=== PATIENT | female | born 1990 | race Caucasian/White ===

== ENCOUNTER 2016-09-13 16:30 | Inpatient (IN) | payer MEDICAID ==
[2016-09-13] VITALS (8 sets, daily range): BP systolic 94–117; RESP 16–20; TEMP 98.4; Ht 162.6 cm; Wt 117.5 kg
[~2016-09-13] VITALS: Ht 162.6 cm; Wt 117.5 kg
[~2016-09-13 16:30] MED LIST: BUPIVACAINE 0.25% PF 10ML EPIDURAL ONE
[2016-09-13] MEDS: LACT RINGERS 1,000 ML IV SCH ×2 (16:45→18:00)
[2016-09-13] MEDS ORDERED: METOCLOPRAMIDE 10 MG/2 ML VIAL IV PUSH PRN (16:55)
[2016-09-13] MEDS ORDERED: ALU/MAG/SIM 30 ML UDC PO PRN (16:55)
[2016-09-13] MEDS ORDERED: CEFAZOLIN 3,000 MG in SODIUM CHLORIDE 0.9% 100 ML IV PRN (16:55)
[2016-09-13] MEDS ORDERED: PROMETHAZINE 25 MG/ML VIAL IV PRN (16:55)
[2016-09-13] MEDS ORDERED: FAMOTIDINE 20 MG INJ IV PRN (16:55)
[2016-09-13] MEDS ORDERED: LIDOCAINE 1% 30 ML PF INFILTRATE ONE (16:55)
[2016-09-13] MEDS ORDERED: LIDOCAINE 1% BUFFERED 1 ML SYR INTRADERM PRN (16:55)
[2016-09-13] MEDS ORDERED: FAMOTIDINE 20 MG TAB PO PRN (16:55)
[2016-09-13] MEDS ORDERED: TERBUTALINE 1 MG/ML VIAL SUBQ PRN (16:55)
[2016-09-13] MEDS ORDERED: ONDANSETRON 4 MG VIAL IV PRN (16:55)
[2016-09-13] MEDS ORDERED: ACETAMINOPHEN 325 MG TAB PO PRN (16:55)
[2016-09-13] MEDS ORDERED: OXYTOCIN 15 UNITS/250 ML NS 250 ML IV SCH (16:55)
[2016-09-13] MEDS ORDERED: FENTANYL 100 MCG/2 ML AMP ONE (17:18)
[2016-09-13] MEDS ORDERED: ROPIV/FENT 0.2%-2MCG/ML 100 ML EPIDURAL ONE (17:18)
[2016-09-13] MEDS ORDERED: LACT RINGERS 500 ML IV PRN (18:50)
[2016-09-13] MEDS ORDERED: ROPIV/FENT 0.2%-2MCG/ML 100 ML EPIDURAL SCH (18:50)
[2016-09-13] MEDS ORDERED: SODIUM CHLORIDE 0.9% 500 ML IV PRN (18:50)
[2016-09-13] MEDS ORDERED: FENTANYL 100 MCG/2 ML AMP EPIDURAL ONE (18:50)
[2016-09-13] MEDS ORDERED: LACT RINGERS 500 ML IV ONE (18:50)
[2016-09-13] MEDS ORDERED: **ONLY ANESTEHSIA MAY ORDER OPIATES WHILE ON EPIDURAL XX SCH (20:00)
[2016-09-13] MEDS: OXYTOCIN 15 UNITS/250 ML NS 250 ML IV SCH ×2 (21:18→21:54)
[2016-09-13] MEDS ORDERED: SALINE FLUSH 10 ML FLUSH PRN (21:30)
[2016-09-13] MEDS ORDERED: MAG HYDROX 30 ML UDC PO PRN (21:30)
[2016-09-13] MEDS ORDERED: DERMOPLAST SPRAY TOPICAL PRN (21:30)
[2016-09-13] MEDS ORDERED: ASTRINGENT MED PADS 40'S TOPICAL PRN (21:30)
[2016-09-13] MEDS ORDERED: MEASLES,MUMPS,RUBELLA VAC SUBQ.VACC ONE (21:30)
[2016-09-13] MEDS ORDERED: MISOPROSTOL 100 MCG TAB ONE (21:37)
[2016-09-13] MEDS ORDERED: MISOPROSTOL 100 MCG TAB PO ONE (21:40)
[2016-09-14] VITALS (9 sets, daily range): BP systolic 89–119; RESP 16–24; TEMP 97.3–98.1
[2016-09-14] MEDS: Ibuprofen 600 MG TAB PO SCH ×5 (00:14→23:21)
[2016-09-14] MEDS: DOCUSATE SOD 100 MG CAP PO SCH (09:19)
[2016-09-14] MEDS ORDERED: MISSING DOSE XX ONE (17:45)
[2016-09-14] MEDS ORDERED: Flu Vaccine Quadrivalent 60 MCG/0.5 ML IM.VACC ONE (17:45)
[2016-09-15 06:04] VITALS: BP_SYST 107; RESP 16; TEMP 97.5
[2016-09-15] MEDS: Ibuprofen 600 MG TAB PO SCH ×2 (06:06→11:40)
[2016-09-15] MEDS: DOCUSATE SOD 100 MG CAP PO SCH (08:55)
[2016-09-15 09:09] VITALS: BP_SYST 107; RESP 16; TEMP 97.5
[2016-09-15 09:19] VITALS: BP_SYST 107; RESP 16; TEMP 97.5
[2016-09-15 09:21] VITALS: BP_SYST 94
[2016-09-15 09:24] VITALS: RESP 16; TEMP 97.3
== END 2016-09-15 12:18 | disposition home or self-care (01) | DRG 775 ==
LOC: LDOP 16:30 → LD 16:47 → OB 09-14 01:50
PROVIDERS: ADMIT Obstetrics & Gynecology Reproductive Endocrinology; ATTEND Obstetrics & Gynecology Reproductive Endocrinology
PROC: 10E0XZZ Delivery of Products of Conception, External Approach (ICD-10-PCS; principal; 2016-09-13)
DX: O80 Encounter for full-term uncomplicated delivery (principal); Z23 Encounter for immunization; Z3A.38 38 weeks gestation of pregnancy; Z37.0 Single live birth
CPT/HCPCS: 85014; 85018; 85025; 86850; 86900; 86901; 90471